=== PATIENT | female | born 1990 | race Caucasian/White ===

== ENCOUNTER 2022-06-04 14:54 | Inpatient (IN) | payer OTHER ==
[2022-06-04 17:09] VITALS: BMI 24.9
[2022-06-04] MEDS ORDERED: DICYCLOMINE HCL 10 MG CAPSULE PO PRN (18:55)
[2022-06-04] MEDS ORDERED: BISMUTH SUBSALICYLATE 524 MG/30 ML PO PRN (18:55)
[2022-06-04] MEDS ORDERED: BENZOCAINE/MENTHOL (CHLORASEPTIC ) LOZENGE MM PRN (18:55)
[2022-06-04] MEDS ORDERED: ACETAMINOPHEN 325 MG TABLET (FP) PO PRN (18:55)
[2022-06-04] MEDS ORDERED: guaiFENesin 200 MG/10 ML 10 ML UNIT-DOSE CUPS PO PRN (18:55)
[2022-06-04] MEDS ORDERED: LOPERAMIDE HCL 2 MG CAPSULE PO PRN (18:55)
[2022-06-04] MEDS ORDERED: MELATONIN 5 MG TABLETS PO PRN (18:55)
[2022-06-04] MEDS ORDERED: MAGNESIUM CITRATE 300 ML BOTTLE PO PRN (18:55)
[2022-06-04] MEDS ORDERED: P-EPHED 60MG/TRIPROLIDI 2.5MG TABLET PO PRN (18:55)
[2022-06-04] MEDS ORDERED: ONDANSETRON *ODT* 4 MG TABLET SL PRN (18:55)
[2022-06-04] MEDS ORDERED: MAG HYDROX/AL HYDROX/SIMETH 30 ML UNIT-DOSE CUP PO PRN (18:55)
[2022-06-04] MEDS ORDERED: chlordiazePOXIDE HCL 25 MG CAPSULE PO PRN (18:57)
[2022-06-04] MEDS ORDERED: SODIUM CHLORIDE NASAL SPRAY 44 ML BOTTLE NS PRN (20:19)
[2022-06-04] MEDS: hydrOXYzine PAMOATE 25 MG CAPSULE (FP) PO PRN (21:05)
[2022-06-04] MEDS: ACETAMINOPHEN 325 MG TABLET (FP) PO PRN (21:06)
[2022-06-04] MEDS: THIAMINE HCL 100 MG TABLET (FP) PO SCH (22:03)
[2022-06-04] MEDS: chlordiazePOXIDE HCL 25 MG CAPSULE PO SCH (22:03)
[2022-06-04] MEDS: FLUTICASONE PROP 0.05% 16 GM NASAL SPRAY NS SCH (22:29)
[2022-06-04] MEDS: KETOCONAZOLE 2 % SHAMPOO 120 ML BOTTLE TP SCH (23:11)
[2022-06-05] MEDS: chlordiazePOXIDE HCL 25 MG CAPSULE PO SCH ×4 (05:37→22:14)
[2022-06-05] MEDS: METHOCARBAMOL 500 MG TABLET PO PRN ×3 (05:40→20:26)
[2022-06-05] MEDS: IBUPROFEN 400 MG TABLET (FP) PO PRN (05:40)
[2022-06-05 09:25] LABS: CHLORIDE 93 mmol/L (98-107); SODIUM 137 mmol/L (136-145)
[2022-06-05 09:27] LABS: HEMATOCRIT 36.8 % (32.4-45.2); HEMOGLOBIN 12.5 GM/dL (10.7-15.3); MCH 32.4 pg (25.7-33.7); MEAN CELL VOLUME 95.2 fl (80-96); MEAN PLT VOLUME 9.3 fl (7.5-11.1); PLATELET COUNT 224 10^3/uL (134-434); RBC 3.87 M/mm3 (3.60-5.2); RDW 12.8 % (11.6-15.6); WHITE BLOOD COUNT 8.5 K/mm3 (4.0-10.0)
[2022-06-05 09:29] LABS: BLOOD UREA NITROGEN 17.1 mg/dL (7-18); CALCIUM 8.8 mg/dL (8.5-10.1)
[2022-06-05 09:31] LABS: ALBUMIN 3.6 g/dl (3.4-5.0); CO2 35 mmol/L (21-32); GLUCOSE,RANDOM 131 mg/dL (74-106)
[2022-06-05 09:33] LABS: CREATININE 0.8 mg/dL (0.55-1.3); SGOT/AST 106 U/L (15-37); SGPT/ALT 100 U/L (13-61)
[2022-06-05 09:35] LABS: TOT PROT 5.9 g/dl (6.4-8.2)
[2022-06-05 09:36] LABS: ALK PHOS 82 U/L (45-117)
[2022-06-05 09:56] LABS: ANION GAP 9 MMOL/L (8-16)
[2022-06-05] MEDS ORDERED: POTASSIUM CHLORIDE TABS 20 MEQ TABLET.ER (FP) PO ONE ×2 (10:08→15:00)
[2022-06-05] MEDS: PRENATAL VITAMINS W/ FOLIC ACID TABLET (FP) PO SCH (10:15)
[2022-06-05] MEDS: LORATADINE 10 MG TABLET PO SCH (10:15)
[2022-06-05] MEDS: FLUTICASONE PROP 0.05% 16 GM NASAL SPRAY NS SCH ×2 (10:15→22:14)
[2022-06-05] MEDS: hydrOXYzine PAMOATE 25 MG CAPSULE (FP) PO PRN ×2 (10:18→18:44)
[2022-06-05] MEDS: ACETAMINOPHEN 325 MG TABLET (FP) PO PRN (10:18)
[2022-06-05] MEDS: IBUPROFEN 600 MG TABLET (FP) PO PRN (14:18)
[2022-06-05 17:23] LABS: EPI CELLS 17 /uL (0-25.1); HYALINE CASTS 99 /uL (0-3.1); PH,URINE 5.5 (5.0-8.0); URINE APPEARANCE TURBID; URINE BILIRUBIN 2+ (NEGATIVE); URINE COLOR ORANGE; URINE GLUCOSE (UA) NEGATIVE (NEGATIVE); URINE KETONE TRACE (NEGATIVE); URINE LEUK ESTERASE 3+ (NEGATIVE); URINE NITRITE POSITIVE (NEGATIVE); URINE PROTEIN 1+ (NEGATIVE); URINE RBC 9 /uL (0-23.9); URINE WBC 914 /uL (0-25.8)
[2022-06-05 21:59] LABS: URINE BACTERIA 46.7 /uL (0-1359); URINE CRYSTALS FEW /hpf; YEAST FEW (NEGATIVE)
[2022-06-05] MEDS: traZODone HCL 50 MG TABLET (FP) PO SCH (22:13)
[2022-06-05] MEDS: THIAMINE HCL 100 MG TABLET (FP) PO SCH (22:13)
[2022-06-06] MEDS ORDERED: chlordiazePOXIDE HCL 25 MG CAPSULE PO SCH (05:00)
[2022-06-06] MEDS: hydrOXYzine PAMOATE 25 MG CAPSULE (FP) PO PRN ×2 (06:01→17:10)
[2022-06-06] MEDS: METHOCARBAMOL 500 MG TABLET PO PRN ×3 (06:13→20:04)
[2022-06-06] MEDS ORDERED: LORazepam 1 MG TABLET PO PRN (09:52)
[2022-06-06] MEDS: FLUTICASONE PROP 0.05% 16 GM NASAL SPRAY NS SCH ×2 (10:24→22:17)
[2022-06-06] MEDS: LORATADINE 10 MG TABLET PO SCH (10:26)
[2022-06-06] MEDS: SULFAMETHOXAZOLE/TRIMETHOPRIM 800MG/160MG D.S. TABLET PO SCH ×2 (10:26→22:16)
[2022-06-06] MEDS: PRENATAL VITAMINS W/ FOLIC ACID TABLET (FP) PO SCH (10:26)
[2022-06-06] MEDS: LORazepam 2 MG TABLET PO SCH ×3 (10:27→22:17)
[2022-06-06] MEDS: IBUPROFEN 600 MG TABLET (FP) PO PRN ×2 (13:50→22:16)
[2022-06-06] MEDS: traZODone HCL 50 MG TABLET (FP) PO SCH (22:17)
[2022-06-06] MEDS: THIAMINE HCL 100 MG TABLET (FP) PO SCH (22:17)
[2022-06-07] MEDS ORDERED: chlordiazePOXIDE HCL 10 MG CAPSULE PO PRN
[2022-06-07] MEDS ORDERED: chlordiazePOXIDE HCL 10 MG CAPSULE PO SCH (05:00)
[2022-06-07] MEDS: LORazepam 1 MG TABLET PO SCH ×4 (05:40→22:08)
[2022-06-07] MEDS: IBUPROFEN 400 MG TABLET (FP) PO PRN ×2 (05:44→18:42)
[2022-06-07] MEDS: FLUTICASONE PROP 0.05% 16 GM NASAL SPRAY NS SCH ×2 (10:10→22:08)
[2022-06-07] MEDS: PRENATAL VITAMINS W/ FOLIC ACID TABLET (FP) PO SCH (10:11)
[2022-06-07] MEDS: LORATADINE 10 MG TABLET PO SCH (10:11)
[2022-06-07] MEDS: SULFAMETHOXAZOLE/TRIMETHOPRIM 800MG/160MG D.S. TABLET PO SCH ×2 (11:37→22:08)
[2022-06-07] MEDS: METHOCARBAMOL 500 MG TABLET PO PRN ×2 (11:42→17:53)
[2022-06-07] MEDS: hydrOXYzine PAMOATE 25 MG CAPSULE (FP) PO PRN ×3 (11:48→22:11)
[2022-06-07] MEDS: KETOCONAZOLE 2 % SHAMPOO 120 ML BOTTLE TP SCH (22:07)
[2022-06-07] MEDS: traZODone HCL 50 MG TABLET (FP) PO SCH (22:08)
[2022-06-07] MEDS: THIAMINE HCL 100 MG TABLET (FP) PO SCH (22:09)
[2022-06-08] MEDS ORDERED: LORazepam 0.5 MG TABLET PO PRN
[2022-06-08] MEDS ORDERED: chlordiazePOXIDE HCL 10 MG CAPSULE PO SCH (05:00)
[2022-06-08] MEDS: LORazepam 0.5 MG TABLET PO SCH ×4 (05:27→22:11)
[2022-06-08] MEDS: hydrOXYzine PAMOATE 25 MG CAPSULE (FP) PO PRN ×5 (05:27→21:03)
[2022-06-08] MEDS: SULFAMETHOXAZOLE/TRIMETHOPRIM 800MG/160MG D.S. TABLET PO SCH ×2 (09:29→22:11)
[2022-06-08] MEDS: FLUTICASONE PROP 0.05% 16 GM NASAL SPRAY NS SCH ×2 (09:29→22:14)
[2022-06-08] MEDS: LORATADINE 10 MG TABLET PO SCH (09:29)
[2022-06-08] MEDS: PRENATAL VITAMINS W/ FOLIC ACID TABLET (FP) PO SCH (09:29)
[2022-06-08 13:09] LABS: BILIRUBIN,TOTAL 0.3 mg/dL (0.2-1)
[2022-06-08] MEDS: BACLOFEN 10 MG TABLET (FP) PO PRN (15:05)
[2022-06-08] MEDS: IBUPROFEN 400 MG TABLET (FP) PO PRN (15:07)
[2022-06-08] MEDS: MAGNESIUM HYDROX 2400MG/30ML ORAL SUSPENSION 30 ML CUP PO PRN (18:23)
[2022-06-08] MEDS: IBUPROFEN 600 MG TABLET (FP) PO PRN (20:41)
[2022-06-08] MEDS: traZODone HCL 50 MG TABLET (FP) PO SCH (22:11)
[2022-06-08] MEDS: THIAMINE HCL 100 MG TABLET (FP) PO SCH (22:11)
[2022-06-09] MEDS ORDERED: LORazepam 0.5 MG TABLET PO ONE (05:00)
[2022-06-09] MEDS ORDERED: chlordiazePOXIDE HCL 10 MG CAPSULE PO ONE (05:00)
[2022-06-09] MEDS: MAGNESIUM HYDROX 2400MG/30ML ORAL SUSPENSION 30 ML CUP PO PRN (05:48)
[2022-06-09] MEDS: hydrOXYzine PAMOATE 25 MG CAPSULE (FP) PO PRN (05:48)
[2022-06-09] MEDS: IBUPROFEN 600 MG TABLET (FP) PO PRN (06:47)
[2022-06-09] MEDS: BACLOFEN 10 MG TABLET (FP) PO PRN (08:05)
[2022-06-09 09:14] VITALS: BP 117/79; PULSE 91; RESP 16; TEMP 97.7
[2022-06-09] MEDS: FLUTICASONE PROP 0.05% 16 GM NASAL SPRAY NS SCH (09:36)
[2022-06-09] MEDS: SULFAMETHOXAZOLE/TRIMETHOPRIM 800MG/160MG D.S. TABLET PO SCH (09:36)
[2022-06-09] MEDS: LORATADINE 10 MG TABLET PO SCH (09:36)
[2022-06-09] MEDS: PRENATAL VITAMINS W/ FOLIC ACID TABLET (FP) PO SCH (09:37)
== END 2022-06-09 09:40 | disposition home or self-care (01) | DRG 775 ==
LOC: YASAS 14:54 → Y6N 19:42
PROVIDERS: ADMIT Allergy & Immunology; ATTEND Surgery
PROC: HZ2ZZZZ Detoxification Services for Substance Abuse Treatment (ICD-10-PCS; principal; 2022-06-04)
DX: F10.230 Alcohol dependence with withdrawal, uncomplicated (principal); F41.9 Anxiety disorder, unspecified; F32.A Depression, unspecified; F43.10 Post-traumatic stress disorder, unspecified; G47.00 Insomnia, unspecified; E87.6 Hypokalemia; N39.0 Urinary tract infection, site not specified; Z87.891 Personal history of nicotine dependence; Z86.59 Personal history of other mental and behavioral disorders
CPT/HCPCS: 36415; 80053; 80178; 81003; 81025; 82247; 82962; 84132; 84450; 85027; 86780; 87811; C9803-CS; J0475; U0003; U0005